=== PATIENT | male | born 1950 | race Caucasian/White ===

== ENCOUNTER → 2016-12-01 | Outpatient (CLI) | payer MEDICARE, OTHER | END | disposition home or self-care (01) | LOC: CFH 07:51 | PROVIDERS: ATTEND Nurse Practitioner | DX: K80.20 Calculus of gallbladder without cholecystitis without obstruction (principal); K76.0 Fatty (change of) liver, not elsewhere classified | CPT/HCPCS: 76700 ==

== ENCOUNTER → 2019-09-10 | Outpatient (CLI) | payer MEDICARE, OTHER ==
[2019-09-10 12:58] LABS: INTERNATIONAL NORMALIZED RATIO 0.94 (0.93-1.1)
[2019-09-10 12:59] LABS: BASOPHILS # (AUTO) 0.02 x10^3/uL (0-0.1); BASOPHILS % (AUTO) 0 % (0-1); EOSINOPHILS # (AUTO) 0.06 x10^3/uL (0-0.4); EOSINOPHILS % (AUTO) 1 % (1-7); LYMPHOCYTES # (AUTO) 1.09 x10^3/uL (1-3.4); LYMPHOCYTES % (AUTO) 15 % (22-44); MD NO; MEAN CORPUSCULAR HEMOGLOBIN 35.3 pg (27.5-34.5); MEAN CORPUSCULAR HGB CONC 34.1 g/dL (33.2-36.2); MEAN CORPUSCULAR VOLUME 103.6 fL (81-97); MEAN PLATELET VOLUME 9.2 fL (7.4-10.4); MONOCYTES # (AUTO) 0.74 x10^3/uL (0.2-0.8); MONOCYTES % (AUTO) 10 % (2-9); NEUTROPHILS # (AUTO) 5.32 x10^3/uL (1.8-6.8); NEUTROPHILS % (AUTO) 74 % (42-75); PLATELET COUNT 212 x10^3/uL (130-400); RED BLOOD COUNT 4.18 x10^6/uL (4.38-5.82); RED CELL DISTRIBUTION WIDTH 12.3 % (9.4-14.8)
[2019-09-10 13:19] LABS: ALBUMIN 4.1 g/dL (3.4-5.0); ANION GAP 7 mmol/L (5-15); CHLORIDE 103 mmol/L (98-107)
[2019-09-10 13:22] LABS: ALANINE AMINOTRANSFERASE 22 U/L (12-78); ALKALINE PHOSPHATASE 94 U/L (45-117); CREATININE 1.64 mg/dL (0.7-1.3); TOTAL PROTEIN 7.8 g/dL (6.4-8.2)
== END | disposition home or self-care (01) ==
LOC: CFH 10:08
PROVIDERS: ATTEND Internal Medicine Cardiovascular Disease
DX: Z01.810 Encounter for preprocedural cardiovascular examination (principal); Z95.818 Presence of other cardiac implants and grafts
CPT/HCPCS: 36415; 71046; 80053; 85025; 85610; 85730

== ENCOUNTER 2019-10-29 09:13 | Outpatient (CLI) | payer MEDICARE, OTHER | END 2019-10-29 23:59 | disposition home or self-care (01) | LOC: STAR 09:13 | PROVIDERS: ATTEND Internal Medicine Cardiovascular Disease | DX: Z02.9 Encounter for administrative examinations, unspecified (principal) ==

== ENCOUNTER 2019-10-31 07:42 | Observation (INO) | payer MEDICARE, OTHER ==
[~2019-10-31] VITALS: Ht 190.5 cm; Wt 81.5 kg
[2019-10-31] MEDS ORDERED: SODIUM CHLORIDE 0.9% 1,000 ML IV SCH (07:54)
[2019-10-31 08:16] VITALS: BP 152/66
[2019-10-31] MEDS ORDERED: FENTANYL PF 100 MCG/2ML ONE (08:22)
[2019-10-31] MEDS ORDERED: MIDAZOLAM 1 MG/ML, 5ML ONE (08:23)
[2019-10-31] MEDS ORDERED: FENTANYL PF 250 MCG/5ML ONE (08:23)
[2019-10-31] MEDS ORDERED: CEFAZOLIN 1,000 MG ONE ×2 (08:23→08:37)
[2019-10-31] MEDS ORDERED: CEFAZOLIN PMX 1GM/50ML 50 ML ONE (08:23)
[2019-10-31] MEDS ORDERED: LIDOCAINE 2%, 20ML ONE (08:23)
[2019-10-31] MEDS ORDERED: ROCURONIUM 10MG/ML,5ML ONE (08:24)
[2019-10-31] MEDS ORDERED: AMLO-150 PO (08:24)
[2019-10-31] MEDS ORDERED: VIT1TABL32 PO (08:24)
[2019-10-31] MEDS ORDERED: ASPI81TA45 PO (08:24)
[2019-10-31] MEDS ORDERED: Magnesium PO (08:24)
[2019-10-31] MEDS ORDERED: HYDR25TA6 PO (08:24)
[2019-10-31] MEDS ORDERED: AMIO200T42 PO (08:24)
[2019-10-31] MEDS ORDERED: LOSA100T14 PO (08:24)
[2019-10-31] MEDS ORDERED: ATOR40TA78 PO (08:24)
[2019-10-31] MEDS ORDERED: DEXAMETHASONE 4 MG/ML, 1ML ONE ×2 (08:27)
[2019-10-31] MEDS ORDERED: ONDANSETRON 2MG/ML, 2ML ONE ×2 (08:27)
[2019-10-31] MEDS ORDERED: PROPOFOL 10 MG/ML, 20ML ONE (08:27)
[2019-10-31 08:35] LABS: BASOPHILS # (AUTO) 0.02 x10^3/uL (0-0.1); BASOPHILS % (AUTO) 0 % (0-1); EOSINOPHILS # (AUTO) 0.09 x10^3/uL (0-0.4); EOSINOPHILS % (AUTO) 1 % (1-7); LYMPHOCYTES # (AUTO) 0.99 x10^3/uL (1-3.4); LYMPHOCYTES % (AUTO) 15 % (22-44); MD NO; MEAN CORPUSCULAR HEMOGLOBIN 35.7 pg (27.5-34.5); MEAN CORPUSCULAR HGB CONC 34.4 g/dL (33.2-36.2); MEAN CORPUSCULAR VOLUME 103.8 fL (81-97); MEAN PLATELET VOLUME 8.2 fL (7.4-10.4); MONOCYTES # (AUTO) 0.63 x10^3/uL (0.2-0.8); MONOCYTES % (AUTO) 10 % (2-9); NEUTROPHILS # (AUTO) 4.91 x10^3/uL (1.8-6.8); NEUTROPHILS % (AUTO) 74 % (42-75); PLATELET COUNT 217 x10^3/uL (130-400); RED BLOOD COUNT 3.99 x10^6/uL (4.38-5.82); RED CELL DISTRIBUTION WIDTH 12.3 % (9.4-14.8)
[2019-10-31] MEDS ORDERED: SUGAMMADEX 200 MG/2 ML IVPush ONE (08:37)
[2019-10-31] MEDS ORDERED: PROPOFOL 10 MG/ML, 50ML ONE (08:37)
[2019-10-31 08:43] LABS: CHLORIDE 109 mmol/L (98-107)
[2019-10-31 08:44] LABS: ANION GAP 9 mmol/L (5-15); CALCIUM 8.7 mg/dL (8.5-10.1); CREATININE 1.41 mg/dL (0.7-1.3)
[2019-10-31] MEDS ORDERED: MIDAZOLAM 1 MG/ML, 2ML ONE (08:53)
[2019-10-31] MEDS ORDERED: ONDANSETRON ODT 8 MG PO PRN (10:00)
[2019-10-31] MEDS ORDERED: DIAZEPAM 5 MG/ML, 2ML IVPush PRN (10:00)
[2019-10-31] MEDS ORDERED: EPHEDRINE 50 MG/ML, 1ML IVPush PRN (10:00)
[2019-10-31] MEDS ORDERED: ACETAMINOPHEN 325 MG TABLET PO PRN ×2 (10:00)
[2019-10-31] MEDS ORDERED: PROMETHAZINE 12.5 MG SUPP PR PRN (10:00)
[2019-10-31] MEDS ORDERED: MIDAZOLAM 1 MG/ML, 2ML IV PRN (10:00)
[2019-10-31] MEDS ORDERED: HYDROmorphone 2 MG/ML, 1ML IVPush PRN (10:00)
[2019-10-31] MEDS ORDERED: LABETALOL 5MG/ML, 20ML IV PRN (10:00)
[2019-10-31] MEDS ORDERED: FENTANYL PF 100 MCG/2ML IV PRN (10:00)
[2019-10-31] MEDS ORDERED: HALOPERIDOL 5 MG/ML IV PRN (10:00)
[2019-10-31] MEDS ORDERED: hydrALAzine 20 MG/ML, 1ML IV PRN (10:00)
[2019-10-31] MEDS ORDERED: OXYcodone 5 MG/5 ML ORAL.SOL UDC PO PRN (10:00)
[2019-10-31] MEDS ORDERED: ALBUTEROL SULFATE 2.5 MG/3 ML NPPB PRN (10:00)
[2019-10-31] MEDS ORDERED: ONDANSETRON 2MG/ML, 2ML IV PRN (10:00)
[2019-10-31] MEDS ORDERED: PROMETHAZINE 25 MG/ML, 1ML IV PRN (10:00)
[2019-10-31] MEDS ORDERED: HOLD MEDICATION MC PRN (10:00)
[2019-10-31] MEDS ORDERED: MEPERIDINE/PF 25MG/ML,1ML IVPush PRN (10:00)
[2019-10-31 14:09] VITALS: BP 143/63
[2019-10-31] MEDS: CEFAZOLIN PMX 1GM/50ML 50 ML IVPB SCH (17:39)
[2019-10-31 19:26] VITALS: BP 118/71
[2019-10-31] MEDS: AMLODIPINE 5 MG TABLET PO SCH (20:18)
[2019-10-31] MEDS: SODIUM CHLORIDE FLUSH 10ML SYR IVF SCH (20:19)
[2019-10-31] MEDS ORDERED: ATORVASTATIN 40 MG TABLET PO SCH (21:00)
[2019-11-01 00:08] VITALS: BP 108/62
[2019-11-01] MEDS: CEFAZOLIN PMX 1GM/50ML 50 ML IVPB SCH (01:40)
[2019-11-01 07:25] VITALS: BP 127/66
[2019-11-01] MEDS ORDERED: ACET325T26 PO (08:22)
[2019-11-01] MEDS ORDERED: AMIODARONE 200 MG TABLET PO SCH (09:00)
[2019-11-01] MEDS ORDERED: HYDROCHLOROTHIAZIDE 25 MG TABLET PO SCH (09:00)
[2019-11-01] MEDS ORDERED: ASPIRIN 81 MG TABLET EC PO SCH (09:00)
[2019-11-01] MEDS: AMLODIPINE 5 MG TABLET PO SCH (09:31)
[2019-11-01] MEDS: SODIUM CHLORIDE FLUSH 10ML SYR IVF SCH (09:32)
== END 2019-11-01 10:15 | disposition home or self-care (01) ==
LOC: CACL 07:42 → ORIP 09:37 → 5SO 10:41
PROVIDERS: ADMIT Internal Medicine Cardiovascular Disease; ATTEND Internal Medicine Cardiovascular Disease
DX: I47.2 Ventricular tachycardia (principal); R00.1 Bradycardia, unspecified; E78.5 Hyperlipidemia, unspecified; I10 Essential (primary) hypertension; Z79.899 Other long term (current) drug therapy; Z79.82 Long term (current) use of aspirin
CPT/HCPCS: 33216; 33263; 36415; 71045; 80048; 85025; 93005; 96365; 96366; C1721; C1769; C1779; C1892; G0378; J0690; J1100; J2250; J2405; J2704; J3010; J3490

== ENCOUNTER 2021-04-30 11:03 | Outpatient (CLI) | payer MEDICARE, OTHER ==
[~2021-04-30 11:03] MED LIST: ACET325T26 PO; AMIO200T42 PO; AMLO-150 PO; ASPI81TA45 PO; ATOR40TA78 PO; HYDR25TA6 PO; LOSA100T14 PO; Magnesium PO; VIT1TABL32 PO
[2021-04-30 11:24] LABS: BASOPHILS % (AUTO) 1 % (0-1); EOSINOPHILS % (AUTO) 1 % (1-7); LYMPHOCYTES % (AUTO) 19 % (22-44); MEAN CORPUSCULAR HEMOGLOBIN 35.9 pg (27.5-34.5); MEAN PLATELET VOLUME 8.5 fL (7.4-10.4); MONOCYTES % (AUTO) 9 % (2-9); NEUTROPHILS % (AUTO) 70 % (42-75); PLATELET COUNT 201 x10^3/uL (130-400); RED BLOOD COUNT 4.13 x10^6/uL (4.38-5.82); RED CELL DISTRIBUTION WIDTH 11.9 % (9.4-14.8)
[2021-04-30 11:36] LABS: ALANINE AMINOTRANSFERASE 38 U/L (12-78); ALBUMIN 3.9 g/dL (3.4-5.0); ANION GAP 11 mmol/L (5-15); CALCIUM 8.9 mg/dL (8.5-10.1); CHLORIDE 116 mmol/L (98-107); CREATININE 1.06 mg/dL (0.7-1.3)
[2021-04-30 11:47] LABS: ALKALINE PHOSPHATASE 89 U/L (45-117); BILIRUBIN,TOTAL 1.4 mg/dL (0.2-1.0); T4 (THYROXINE) 12.1 mcg/dL (4.5-12.1); TOTAL PROTEIN 7.6 g/dL (6.4-8.2)
== END 2021-04-30 23:59 | disposition home or self-care (01) ==
LOC: LAB 11:03 → RAD 23:59
PROVIDERS: ATTEND Internal Medicine Cardiovascular Disease
DX: I10 Essential (primary) hypertension (principal); I47.2 Ventricular tachycardia; Z95.810 Presence of automatic (implantable) cardiac defibrillator
CPT/HCPCS: 36415; 71046; 80053; 84436; 84443; 84481; 85025